=== PATIENT | female | born 1950 | race American Indian/Alaskan Native ===

== ENCOUNTER 2016-09-18 11:26 | Emergency (ER) | payer SELFPAY ==
[2016-09-18] MEDS ORDERED: ULTRAM PO ONE (12:47)
--- NOTE | 2016-09-18 13:51 | XRay Report ---
RIGHT KNEE RADIOGRAPHS INDICATION: Knee pain, status post fall. COMPARISON: None similar. FINDINGS: AP, lateral and oblique right knee radiographs demonstrate intact bony articulation. Slight medial tibial corner as also superior and inferior patellar pole spurring. Superior patellar enthesophyte. Normal soft tissues without evidence of suprapatellar effusion. CONCLUSION: No acute right knee radiographic abnormality with age-appropriate, mild degenerative changes, as above. Thank you for the opportunity to participate in this patient's care.
--- NOTE | 2016-09-18 13:52 | XRay Report ---
LUMBAR SPINE RADIOGRAPHS: INDICATION: Fall, low back pain. COMPARISON: None similar at this institution. FINDINGS: AP and lateral lumbar spine radiographs demonstrate approximately 4 mm anterolisthesis of L4 over L5. Normal vertebral body stature. Mild lower lumbar disc narrowing and facet arthropathy suspected. Slight lumbar levocurvature apex about L4. Nonobstructive bowel gas pattern. Intact SI joints. Numerous pelvic phleboliths. CONCLUSION: No acute lumbar radiographic abnormality with lower lumbar degenerative changes noted. Thank you for the opportunity to participate in this patient's care.
--- NOTE | 2016-09-18 13:53 | Emergency Department Report ---
Entered by TOLU RESTREPO, acting as scribe for IRMA CANTU NP. ED Back Pain/Injury HPI - General Chief Complaint: Back Pain/Injury Stated Complaint: FELL/BACK PAIN Time Seen by Provider: 09/18/16 12:41 Source: patient Limitations: No Limitations - History of Present Illness Initial Comments: 66 y/o female with PMHx of CVA and hypertension, presents to the ED c/o right knee pain and right lumbar pain after a fall last night. Denies fever, chills, nausea, vomiting and headache. Pain is described as sharp and 6/10 on a severity scale. Patient states she slipped and landed on right knee at a [employer] store. No alleviating or aggravating factors. NKDA. GARCIA Complaint: other (right knee pain and right lumbar pain) -: Last night Similar Symptoms Previously: No Place: other (store) Radiation: other (right knee to right lumbar ) Severity: moderate Severity scale (0 -10): 6 Quality: sharp Consistency: constant Improves With: none Worsens With: none Context: fall Associated Symptoms: denies: fever/chills, headaches, nausea/vomiting - Related Data Previous Rx's Medication Instructions Recorded Last Taken Type Acetaminophen [Acetaminophen TAB] 1,000 mg PO Q6HR PRN #30 tablet 09/18/16 Unknown Rx Cyclobenzaprine [Flexeril] 10 mg PO TID PRN #30 tablet 09/18/16 Unknown Rx Diclofenac Sodium [Voltaren] 100 gm TP TID #1 tube 09/18/16 Unknown Rx Allergies Allergy/AdvReac Type Severity Reaction Status Date / Time No Known Allergies Allergy Unverified 09/18/16 11:32 ED Review of Systems Comment: All other systems reviewed and negative Constitutional: denies: chills, fever Gastrointestinal: denies: nausea, vomiting Musculoskeletal: other (right knee pain and right lumbar pain) Neurological: denies: headache ED Past Medical Hx - Past Medical History Previous Medical History?: Yes Hx Hypertension: Yes Hx CVA: Yes (2003) Additional medical history: [id number] under management for seizures-- medicaitons stopped in 2005 - Surgical History Past Surgical History?: No - Social History Smoking Status: Never Smoker - Medications Home Medications: Home Medications Medication Instructions Recorded Confirmed Last Taken Type Acetaminophen [Acetaminophen TAB] 1,000 mg PO Q6HR PRN #30 tablet 09/18/16 Unknown Rx Cyclobenzaprine [Flexeril] 10 mg PO TID PRN #30 tablet 09/18/16 Unknown Rx Diclofenac Sodium [Voltaren] 100 gm TP TID #1 tube 09/18/16 Unknown Rx ED Physical Exam - General Limitations: No Limitations General appearance: alert, in no apparent distress - Head Head exam: Present: atraumatic, normocephalic, normal inspection - Eye Eye exam: Present: normal appearance, PERRL, EOMI Pupils: Present: normal accommodation - ENT ENT exam: Present: normal exam, normal orophraynx, mucous membranes moist, TM's normal bilaterally, normal external ear exam - Neck Neck exam: Present: normal inspection, full ROM. Absent: tenderness, meningismus, lymphadenopathy, thyromegaly - Respiratory Respiratory exam: Present: normal lung sounds bilaterally. Absent: respiratory distress, wheezes, rales, rhonchi, chest wall tenderness, accessory muscle use - Cardiovascular Cardiovascular Exam: Present: regular rate, normal rhythm, normal heart sounds. Absent: bradycardia, tachycardia, irregular rhythm, systolic murmur, diastolic murmur, rubs, gallop - GI/Abdominal GI/Abdominal exam: Present: soft, normal bowel sounds. Absent: tenderness, guarding, rebound, diminished bowel sounds - Extremities Exam Extremities exam: Present: normal inspection, full ROM, normal capillary refill. Absent: tenderness, pedal edema, joint swelling, calf tenderness - Expanded Lower Extremity Exam Right Hip exam: Present: normal inspection, full ROM. Absent: tenderness Upper Leg exam: Present: normal inspection, full ROM. Absent: tenderness Knee exam: Present: normal inspection, full ROM, full knee extension. Absent: tenderness Lower Leg exam: Present: normal inspection, full ROM. Absent: tenderness Ankle exam: Present: normal inspection, full ROM. Absent: tenderness Foot/Toe exam: Present: normal inspection, full ROM. Absent: tenderness Neuro vascular tendon exam: Present: no vascular compromise. Absent: pulse deficit, abnormal cap refill, motor deficit, sensory deficit, tendon deficit, extremity cold to touch, pallor, abnormal 2-point discrimination, decreased fine /light touch, foot drop, peroneal nerve deficit, significant pain with passive ROM of distal joint Gait: Positive: observed and normal - Back Exam Back exam: Present: normal inspection, full ROM. Absent: tenderness, CVA tenderness (R), CVA tenderness (L), muscle spasm, paraspinal tenderness, vertebral tenderness, rash noted - Expanded Back Exam Expanded Back exam: Absent: saddle anesthesia Back exam: Sciatic Notch Tenderness: Right, Positive Straight Leg Raise: Right, Negative Straight Leg Raising: Left - Neurological Exam Neurological exam: Present: alert, oriented X3, CN II-XII intact, normal gait, reflexes normal - Psychiatric Psychiatric exam: Present: normal affect, normal mood - Skin Skin exam: Present: warm, dry, intact, normal color. Absent: rash ED Course Vital Signs 09/18/16 09/18/16 11:33 12:55 Temperature 98.1 F Pulse Rate 77 Respiratory 16 16 Rate Blood Pressure 156/86 O2 Sat by Pulse 96 Oximetry ED Medical Decision Making - Radiology Data Radiology results: image reviewed - Medical Decision Making pt is a 66 y/o aaf with hx of htn, who presents s/p glf yesterday in grocery store pt advises that she slipped and fell on her right knee and now has right and right low back pain , pain is described as 5/10 aching and burning pain is relieved by rest pain is exacerbated by prolonged standing and ambulating, there is no numbness no weakness no tingling no loss or decrease in bowel or bladder function pt remains ambulatory to baseline, exam: no posterior vertebral point tenderness no paraspinus muscle tenderness to deep palpation mild right sciatic notch tenderness to deep palpation, positive straight leg raise sitting right, there is no weakness , right knee joint is stable no drawer no erythema no ecchymosis no swelling no bursitis no, no effusion pt has full extension and flexion without restriction, pain is improved with ultram given in ed, Lspine xray: no fracture right knee xray: no fracture, pt refused pain medication in ed, plan: Tylenol 1gm po qid prn pain , voltaren gel tid , flexeril 10 mg po tid prn spasm, pt will follow up with pcp in 3-4 days or return to emergency if symptoms worsen. ED Disposition Clinical Impression: Strain of right knee and leg Qualifiers: Encounter type: initial encounter Qualified Code(s): S86.911A - Strain of unspecified muscle(s) and tendon(s) at lower leg level, right leg, initial encounter Low back strain Qualifiers: Encounter type: initial encounter Qualified Code(s): S39.012A - Strain of muscle, fascia and tendon of lower back, initial encounter Disposition: TO HOME OR SELFCARE Is pt being admited?: No Does the pt Need Aspirin: No Condition: Good Instructions: Knee Pain (ED), Low Back Strain (ED), Core Strengthening Exercises (GEN) Prescriptions: Acetaminophen [Acetaminophen TAB] 1,000 mg PO Q6HR PRN #30 tablet PRN Reason: Pain Cyclobenzaprine [Flexeril] 10 mg PO TID PRN #30 tablet PRN Reason: Muscle Spasm Diclofenac Sodium [Voltaren] 100 gm TP TID #1 tube Referrals: PRIMARY CARE,MD [Primary Care Provider] - 3-5 Days Forms: Work/School Release Form(ED) Time of Disposition: 13:51 This documentation as recorded by the LAURO pastrana ELIZABETH,accurately reflects the service I personally performed and the decisions made by me, IRMA CANTU NP.
[2016-09-18 14:11] VITALS: BP 138/80
== END 2016-09-18 14:00 | disposition home or self-care (01) ==
LOC: ED 11:26
DX: S86.911A Strain of unspecified muscle(s) and tendon(s) at lower leg level, right leg, initial encounter (principal); S39.012A Strain of muscle, fascia and tendon of lower back, initial encounter; W01.0XXA Fall on same level from slipping, tripping and stumbling without subsequent striking against object, initial encounter; Y93.9 Activity, unspecified; Y92.9 Unspecified place or not applicable; Y99.9 Unspecified external cause status
CPT/HCPCS: 72100

== ENCOUNTER 2017-08-23 11:36 | Emergency (ER) | payer MEDICARE ==
[2017-08-23 12:12] VITALS: BP 140/74
--- NOTE | 2017-08-23 12:55 | Emergency Department Report ---
Blank Doc - Documentation Documentation: Patient is a 67-year-old female who is presenting with some suprapubic discomfort the past month. Has been intermittent. Patient is convinced that she has a yeast infection however she is has no vaginal irritation or vaginal discharge. Patient denies any dysuria or urinary frequency. Patient states there is a pressure sensation in the suprapubic region that now is constant will go away for the past several days. Patient will have a urinalysis performed the patient will be reassessed.
[2017-08-23 13:28] LABS: Bilirubin,Urine NEG (Negative); Blood,Urine NEG (Negative); Color,Urine Yellow (Yellow); Mucus,Urine FEW /HPF; Protein,Urine <15 mg/dL mg/dL (Negative); Urobilinogen,Urine < 2.0 mg/dL (<2.0); WBC,Urine < 1.0 /HPF (0.0-6.0)
--- NOTE | 2017-08-23 15:43 | Emergency Department Report ---
ED Abdominal Pain HPI - General Chief Complaint: Urogenital-Female Stated Complaint: LOWER ABDOMIN PAIN Time Seen by Provider: 08/23/17 12:50 Source: patient Mode of arrival: Ambulatory Limitations: No Limitations - History of Present Illness Initial Comments: Patient is a 67-year-old female who is presenting with some suprapubic discomfort the past month. Has been intermittent. Patient is convinced that she has a yeast infection however she is has no vaginal irritation or vaginal discharge. Patient denies any dysuria or urinary frequency. Patient states there is a pressure sensation in the suprapubic region that now is constant will go away for the past several days. Location: suprapubic Severity scale (0 -10): 2 - Related Data Previous Rx's Medication Instructions Recorded Last Taken Type Acetaminophen [Acetaminophen TAB] 1,000 mg PO Q6HR PRN #30 tablet 09/18/16 Unknown Rx Cyclobenzaprine [Flexeril] 10 mg PO TID PRN #30 tablet 09/18/16 Unknown Rx Diclofenac Sodium [Voltaren] 100 gm TP TID #1 tube 09/18/16 Unknown Rx Fluconazole [Diflucan] 200 mg PO ONCE #1 tablet 08/23/17 Unknown Rx Allergies Allergy/AdvReac Type Severity Reaction Status Date / Time No Known Allergies Allergy Unverified 09/18/16 11:32 ED Review of Systems ROS: Stated complaint: LOWER ABDOMIN PAIN Other details as noted in HPI Comment: All other systems reviewed and negative ED Past Medical Hx - Past Medical History Previous Medical History?: Yes Hx Hypertension: Yes Hx CVA: Yes (2003) Hx Seizures: Yes Additional medical history: [id number] under management for seizures-- medicaitons stopped in 2005, Frequent yeast infections - Surgical History Past Surgical History?: Yes Additional Surgical History: Hysterectomy - Social History Smoking Status: Never Smoker Substance Use Type: Alcohol, Prescribed - Medications Home Medications: Home Medications Medication Instructions Recorded Confirmed Last Taken Type Acetaminophen [Acetaminophen TAB] 1,000 mg PO Q6HR PRN #30 tablet 09/18/16 Unknown Rx Cyclobenzaprine [Flexeril] 10 mg PO TID PRN #30 tablet 09/18/16 Unknown Rx Diclofenac Sodium [Voltaren] 100 gm TP TID #1 tube 09/18/16 Unknown Rx Fluconazole [Diflucan] 200 mg PO ONCE #1 tablet 08/23/17 Unknown Rx ED Physical Exam - General Limitations: No Limitations General appearance: alert, in no apparent distress - Head Head exam: Present: atraumatic, normocephalic - Eye Eye exam: Present: normal appearance - ENT ENT exam: Present: mucous membranes moist - Neck Neck exam: Present: normal inspection - Respiratory Respiratory exam: Present: normal lung sounds bilaterally. Absent: respiratory distress, wheezes, rales - Cardiovascular Cardiovascular Exam: Present: regular rate, normal rhythm. Absent: systolic murmur, diastolic murmur, rubs, gallop - GI/Abdominal GI/Abdominal exam: Present: soft, normal bowel sounds. Absent: distended, tenderness, guarding, rebound - Extremities Exam Extremities exam: Present: normal inspection - Back Exam Back exam: Present: normal inspection - Neurological Exam Neurological exam: Present: alert, oriented X3 - Psychiatric Psychiatric exam: Present: normal affect, normal mood - Skin Skin exam: Present: warm, dry, intact, normal color. Absent: rash ED Course Vital Signs 08/23/17 08/23/17 12:08 12:47 Temperature 97.9 F Pulse Rate 73 Respiratory 16 15 Rate Blood Pressure 140/74 O2 Sat by Pulse 99 Oximetry ED Medical Decision Making - Lab Data Lab Results 08/23/17 Range/Units 13:14 Urine Color Yellow (Yellow) Urine Turbidity Clear (Clear) Urine pH 5.0 (5.0-7.0) Ur Specific Elizabeth 1.016 (1.003-1.030) Urine Protein <15 mg/dl (Negative) mg/dL Urine Glucose (UA) Neg (Negative) mg/dL Urine Ketones Neg (Negative) mg/dL Urine Blood Neg (Negative) Urine Nitrite Neg (Negative) Urine Bilirubin Neg (Negative) Urine Urobilinogen < 2.0 (<2.0) mg/dL Ur Leukocyte Esterase Neg (Negative) Urine WBC (Auto) < 1.0 (0.0-6.0) /HPF Urine RBC (Auto) 2.0 (0.0-6.0) /HPF U Epithel Cells (Auto) 2.0 (0-13.0) /HPF Urine Mucus Few /HPF - Medical Decision Making Patient's urine is within normal limits. Patient will be given Diflucan will be discharged home with follow-up with [facility]. Critical care attestation.: If time is entered above; I have spent that time in minutes in the direct care of this critically ill patient, excluding procedure time. ED Disposition Clinical Impression: Pelvic pain Disposition: DC-01 TO HOME OR SELFCARE Is pt being admited?: No Does the pt Need Aspirin: No Condition: Stable Additional Instructions: The urinalysis was within normal limits. Urinalysis also was not suggestive of a yeast infection however because he had used infections present in this matter in the past I have given a prescription for Diflucan. Please follow up with OB/ [facility] for further testing. Prescriptions: Fluconazole [Diflucan] 200 mg PO ONCE #1 tablet Referrals: PRIMARY CARE [Primary Care Provider] - 3-5 Days
== END 2017-08-23 16:00 | disposition home or self-care (01) ==
LOC: ED 11:36
DX: R10.2 Pelvic and perineal pain (principal); I10 Essential (primary) hypertension; Z90.710 Acquired absence of both cervix and uterus; Z86.73 Personal history of transient ischemic attack (TIA), and cerebral infarction without residual deficits
CPT/HCPCS: 81001; 99283